=== PATIENT | male | born 1980 | race Caucasian/White ===

== ENCOUNTER 2018-10-07 22:54 | Emergency (ER) ==
[~2018-10-07] VITALS: Ht 180.3 cm; Wt 94.3 kg
--- NOTE | 2018-10-08 00:25 | NUR ---
BIBSELF FROM HOME. AAOX4. NAD, BREATHING EVEN AND UNLABORED. AMBULATORY. CAME IN FOR C/O PAIN SWOLLEN LUMP ON R UPPER BACK. NOTED SWELLING, REDNESS AND TENDER TO TOUCH. SKIN INTACT. PAIN 10/23. TO ER BED 4. AWAITING MD FOR EVAL.
[2018-10-08] MEDS ORDERED: LIDOCAINE 1%-EPI 1:100,000 20 ML VIAL ONE (01:00)
[2018-10-08] MEDS ORDERED: SULFAMETH/TRIMETH 800/160 MG 1 UDTAB TABLET PO ONE ×3 (01:25→01:30)
[2018-10-08 01:29] VITALS: BP 126/71
--- NOTE | 2018-10-08 01:29 | NUR ---
Patient discharged to home in stable condition. Written and verbal after care instructions given. Patient verbalizes understanding of instruction.
== END 2018-10-08 01:31 | disposition home or self-care (01) ==
LOC: ER 22:57
DX: L02.212 Cutaneous abscess of back [any part, except buttock and flank] (principal)
CPT/HCPCS: 10060; 99284; A6403; A6407; J3490